=== PATIENT | male | born 1960 | race Caucasian/White ===

== ENCOUNTER → 2016-11-09 | Outpatient (CLI) | payer SELFPAY ==
[~2016-11-09] MED LIST: HALDOL DEC50 MG/1 ML IM; NO HOME MEDICATIONS
== END ==
LOC: WCC 09:56
DX: L97.529 Non-pressure chronic ulcer of other part of left foot with unspecified severity (principal)
CPT/HCPCS: G0463

== ENCOUNTER → 2016-11-16 | Outpatient (CLI) | payer MEDICARE | LOC: WCC 08:51 | DX: L98.0 Pyogenic granuloma (principal) | CPT/HCPCS: 17716; A6212; G0463 ==